=== PATIENT | female | born 1970 | race Asian ===

== ENCOUNTER 2016-09-28 09:04 | Emergency (ER) | payer BC, OTHER ==
[~2016-09-28] VITALS: Ht 157.5 cm; Wt 59.5 kg
[2016-09-28 09:07] VITALS: Ht 157.5 cm; Wt 59.5 kg
[2016-09-28] MEDS ORDERED: NAPR-260 PO (09:35)
[2016-09-28] MEDS ORDERED: CYCL-319 PO (09:36)
--- NOTE | 2016-09-28 09:42 | ERD ---
ER Documentation Chief Complaint Date/Time DATE: 09/28/16 TIME: 09:37 Chief Complaint NECK PAIN X 3 DAYS HPI This 46-year-old female who presents the emergency department today complaining of left-sided neck pain for the past 3 days. Patient states that she woke up with this pain. states he has an appointment with her primary care doctor on the 12th. Denies any trauma. Denies any sore throat. Denies any fevers or chills ROS All systems reviewed and are negative except as per history of present illness. Medications Home Meds Active Scripts Cyclobenzaprine Hcl* (Cyclobenzaprine Hcl*) 10 Mg Tablet, 10 MG PO QHS, #7 TAB Prov:CLAUDETET SOMMER PA-C 09/28/16 Naproxen* (Naprosyn*) 500 Mg Tablet, 500 MG PO BID Y for PAIN AND/OR INFLAMMATION, #30 TAB Prov:CLAUDETTE SOMMER PA-C 09/28/16 Physical Exam Vitals Vital Signs Date Time Temp Pulse Resp B/P Pulse Ox O2 Delivery O2 Flow Rate FiO2 09/28/16 09:07 97.5 65 18 130/81 100 Physical Exam Const: No acute distress Head: Atraumatic Eyes: Normal Conjunctiva ENT: Ears TMs normal. Nose no drainage. Throat no erythema no exudate Neck: Decreased range of motion secondary to pain..~ No meningismus. Pain worse turning head to the left. No pain turning neck to the right. Tenderness palpation left side of neck and paraspinals and upper and lower trapezius Resp: Clear to auscultation bilaterally Cardio: Regular rate and rhythm, no murmurs Skin: No petechiae or rashes Neur: Awake and alert Psych: Normal Mood and Affect Procedures/MDM This a 46-year-old female who presents the emergency department today complaining of left-sided neck pain for the past 3 days that started when she woke up. Patient is afebrile and otherwise well-appearing. She has had no trauma. Do not feel the patient requires imaging at this time. Low suspicion for acute fracture dislocation. Patient has no midline tenderness. Low suspicion for meningitis. Patient's pain appears most consistent with musculoskeletal strain versus sprain versus muscle spasm given the tenderness on the left side and pain with turning to the left. I did also consider torticollis as well. Patient has no sore throat and there is no evidence of peritonsillar abscess or retropharyngeal abscess or strep pharyngitis as cause of neck pain. Patient did drive herself to the ER and I did offer her a Toradol injection however she has declined at this time. I did also then offer her Motrin she also declined that. Patient was asking for me to call a chiropractor here to the emergency department or transfer her to a chiropractor. I explained to her that this is not something that was done in the ER and a chiropractors a clinician that is seen as an outpatient. I explained to her that she could follow-up with her primary care doctor to get referral for critical care paramedic or she may pay out of pocket for it. She understood. Patient did indicate she has an appoint with her primary care doctor on the for further evaluation and management. Patient was given a prescription for Naprosyn and Flexeril. At this time the patient is stable for discharge and outpatient management. Patient should follow up with their PCP in the next 1-2 days. They may return to the emergency department sooner for any persistent or worsening of symptoms. Patient understood and agreed with the plan. Departure Diagnosis: Primary Impression: Neck pain Condition: Fair Patient Instructions: Muscle Spasm, Neck Pain, No Trauma Referrals: your PCP Additional Instructions: Call your primary care doctor TOMORROW for an appointment during the next 1-2 days.See the doctor sooner or return here if your condition worsens before your appointment time. Take Naprosyn or Tylenol or Motrin for pain Take Flexeril for muscle spasms. Take only at night and do not drive while taking this medication Apply ice and heat intermittently CLAUDETTE SOMMER PA-C Sep 28, 2016 09:42
== END 2016-09-28 10:25 | disposition home or self-care (01) ==
LOC: FTE 09:04
DX: M54.2 Cervicalgia (principal)
CPT/HCPCS: 99283